=== PATIENT | female | born 1945 | race Caucasian/White ===

== ENCOUNTER 2021-02-27 10:00 | Inpatient (IN) | payer OTHER, SELFPAY ==
--- NOTE | ~2021-02-27 | XR_ITS ---
EXAMINATION: XR hip RT min 3V w AP pelvis DATE: 02/27/2021 10:26 INDICATION: Right hip pain and deformity post fall TECHNIQUE: Anteroposterior view of the pelvis and anteroposterior, frog leg and cross-table lateral v iews of the right hip were obtained. COMPARISON: None. FINDINGS: Oblique intratrochanteric fracture of the proximal right femur. Fractures minimally displaced with ap proximately 10 degree varus and posterior angulation. The fracture appears mildly comminuted with sep aration of the lesser trochanter which is distracted 1 cm proximally. 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 Moderate to severe lumbar facet osteoarthritis. IMPRESSION: 1. Mildly comminuted intratrochanteric fracture of the proximal right femur. Reviewed, dictated and finalized at location A.
--- NOTE | ~2021-02-27 | XR_ITS ---
EXAMINATION: XR surgery orthopedic DATE: 02/28/2021 11:57 INDICATION: Right hip gamma nailing TECHNIQUE: 6 fluoroscopic spot images of the right hip were obtained during procedure performed by Dr Joni Varghese. Radiologist was not present for the imaging or procedure. The amount of fluoroscopy time u sed during this procedure was 5.7 minutes. COMPARISON: 02/27/2021 FINDINGS: Images demonstrate interval open reduction and internal fixation of the previous noted comminuted int ratrochanteric fracture of the proximal right femur. The fracture is fixed with an antegrade intramed ullary beth and femoral neck dynamic compression screw and distal interlocking screw. Alignment post f ixation is near-anatomic. No new fractures identified. Mild osteoarthritis at the right hip. Expected small amount of postoperative soft tissue gas. IMPRESSION: 1. Near-anatomic alignment post open reduction internal fixation of a comminuted intratrochanteric fr acture of the proximal right femur. Reviewed, dictated and finalized at location A. IMPRESSION: 1. Near-anatomic alignment post open reduction internal fixation of a comminute d intratrochanteric fracture of the proximal right femur.
[2021-02-27 10:00] VITALS: BP 180/82; PULSE 68; TEMP 36.9; O2SAT 99
--- NOTE | 2021-02-27 10:58 | ECG_ITS ---
Measurements Intervals [place] Rate: 64 P: 32 NH: 199 QRS: -18 QRSD: 98 T: -37 QT: 399 QTc: 413 Interpretive Statements SINUS RHYTHM LEFT VENTRICULAR HYPERTROPHY AND ST-T CHANGE BORDERLINE T WAVE ABNORMALITY- INF/LAT LEADS BASELINE WANDER- I, II, III, AVR, AVL, AVF BORDERLINE ECG Electronically Signed On 02-27-2021 11:54:05 CDT by Mic Skinner D.O.
[2021-02-27 11:22] LABS: Basophils Percent Auto 0.5 % (0.2-1.2); Eosinophils Absolute Auto 0.1 K/mm3 (0-0.3); Eosinophils Percent Auto 0.8 % (0-4.4); Hematocrit 38.4 % (37.0-47.0); Hemoglobin 12.5 g/dL (12.0-15.0); Immature Granulocyte Absolute 0.04 K/mm3 (0.00-0.031); Immature Granulocyte Percent A 0.5 % (0-0.5); Lymphocytes Absolute Auto 1.03 K/mm3 (0.9-3.2); Lymphocytes Percent Auto 12.2 % (18.3-44.2); Mean Corpuscular HGB Conc 32.6 g/dl (32-36); Mean Corpuscular Hemoglobin 28.3 pg (26-34); Mean Corpuscular Volume 86.9 fl (80-100); Mean Platelet Volume 9.7 fl (7.4-10.4); Monocytes Absolute Auto 0.4 K/mm3 (0.1-0.6); Monocytes Percent Auto 4.8 % (2.6-8.5); Neutrophils Absolute Auto 6.9 K/mm3 (1.3-6.7); Neutrophils Percent Auto 81.2 % (45.5-73.1); Platelet Count Result 248 k/mm3 (150-375); Red Blood Count 4.42 M/mm3 (4.2-5.4); Red Cell Distribution Width 13.7 % (11.5-14.5); White Blood Count 8.5 K/mm3 (4.5-10.0)
[2021-02-27 11:32] LABS: Alanine Aminotransferase 24 U/L (4-35); Albumin Level 4.3 g/dL (3.5-5.1); Alkaline Phosphatase 125 U/L (38-126); Anion Gap 9 mmol/L (8-16); Aspartate Amino Transferase 55 U/L (14-36); Bilirubin,Total 0.8 mg/dL (0.2-1.3); Blood Urea Nitrogen 19 mg/dL (7-17); Carbon Dioxide 26 mmol/L (22-30); Chloride 104 mmol/L (98-107); Estimated CRCL calculation 65 ml/min; Estimated Glomerular Filt Rate > 60; Glucose 133 mg/dL (65-110); Sodium 139 mmol/L (137-145)
[2021-02-27 11:35] LABS: INR 0.9; Prothrombin Time 12.5 Seconds (11.1-14.7)
[2021-02-27 11:36] LABS: Partial Thromboplastin Time 24.4 SECONDS (22.3-36.8)
--- NOTE | 2021-02-27 11:49 | ED.GENADULT ---
HPI - General Adult General Chief complaint: Fall <Allan Hayden PA-C - Last Filed: 02/27/21 14:38> Stated complaint: right hip pain <Allan Hayden PA-C - Last Filed: 02/27/21 14:38> Source: patient <Allan Hayden PA-C - Last Filed: 02/27/21 14:38> Mode of arrival: ambulatory <Allan Hayden PA-C - Last Filed: 02/27/21 14:38> Limitations: no limitations <Allan Hayden PA-C - Last Filed: 02/27/21 14:38> History of Present Illness HPI narrative: Patient is a 76-year-old female presented with chief complaint of right hip pain is started just prior to arrival after she fell onto her right hip. Patient reports that she was attempting to move her bed when she fell onto the lateral aspect of her right hip. She reports great pain with weight-bear so she contacted her son-in-law EMS was called. Patient is very upset about her injury as her 's is on Wednesday. Patient denies any other areas of pain. Patient denies head impact or loss of consciousness. Patient reports that her pedis specialist is Dr Bruno. <Allan Hayden PA-C - Last Filed: 02/27/21 14:38> Related Data Home medications: Home Medications Medication Instructions Recorded Confirmed atorvastatin 40 mg PO DAILY 02/17/21 02/17/21 buspirone 10 mg PO DAILY 02/17/21 02/17/21 escitalopram oxalate 20 mg PO DAILY 02/17/21 02/17/21 febuxostat 40 mg PO DAILY 02/17/21 02/17/21 omeprazole 20 mg PO DAILY 02/17/21 02/17/21 <ELISA Villegas Last Filed: 02/27/21 14:38> Allergies/adverse reactions: Allergies Allergy/AdvReac Type Severity Reaction Status Date / Time allopurinol Allergy Other Verified 02/17/21 14:13 venom-wasp Allergy Swelling Verified 02/17/21 14:13 of Lip/Tongue/Throat IVP DYE Allergy Mild Swelling Uncoded 02/17/21 14:13 of Lip/Tongue/Throat <Allan Hayden PA-C - Last Filed: 02/27/21 14:38> Review of Systems Review of Systems: CONSTITUTIONAL: Denies fever, chills, or sweats. EYES: Denies visual changes, redness, or discharge. ENT: Denies rhinorrhea, congestion, sore throat, or otalgia. CARDIOVASCULAR: Denies chest pain, palpitations, or edema. RESPIRATORY: Denies cough or dyspnea. GASTROINTESTINAL: Denies abdominal pain, nausea, vomiting, or diarrhea. GENITOURINARY: Denies dysuria or hematuria. SKIN: Denies rash or itching. MUSCULOSKELETAL: Reports right hip pain denies back pain, joint pain, or myalgia. NEUROLOGIC: Denies headache, numbness, dizziness, or weakness. PSYCHIATRIC: Denies anxiety or depression. <Allan Hayden PA-C - Last Filed: 02/27/21 14:38> PMFSH Past Medical History Medical History: Medical History Anxiety and depression GERD (gastroesophageal reflux disease) Gout History of high cholesterol <Allan Hayden PA-C - Last Filed: 02/27/21 14:38> Surgical History Surgical History: Surgical History History of hysterectomy <Allan Hayden PA-C - Last Filed: 02/27/21 14:38> Social History Social History: Social History Smoking status: Former smoker Tobacco type: cigarettes Substance use: never Substance use type: does not use Spiritual care concerns: No <Allan Hayden PA-C - Last Filed: 02/27/21 14:38> Exam Narrative: GENERAL: Well-appearing, well-nourished, and in no acute distress. HEAD: Normocephalic, atraumatic. EYES: PERRLA and EOMI. ENT: Nares clear, no rhinorrhea or epistaxis. Mucous membranes moist. Oropharynx without tonsillar hypertrophy exudate or other lesions. Bilateral TMs pearly silva nonbulging. No hemotympanum. NECK: Supple. No adenopathy or masses. ROM intact. No tenderness with palpation. CHEST: Clear to auscultation. No respiratory distress. No wheezes rales or rhonchi HEART: Regular rate and rhythm. No murmur hear
--- NOTE | 2021-02-27 12:33 | PC.NURSE ---
Pt asked for pain medication, informed PA, patient took off monitoring will replace, pt and daughter would like to speak to ortho PA aware and will update patient and daughter of plan
[2021-02-27] MEDS: HYDROmorphone HCL INJ (*CRX) 1 MG/ML SYR IV PUSH (13:03)
--- NOTE | 2021-02-27 14:07 | PCCCNOTE ---
Phone call received from Dr. Nelda Pascal, requesting help with communication. States that patient's and the is one Wednesday and family and daughter Lucy are going through a tragic loss and very overhwhelmed. The covering orthopedic will see her on the floor but due to visitor restrictions the daughter will not be able to meet with the orthopedic. Dr. Pascal requesting that communication to orthopedic to see if they can meet with daughter Lucy in the ED face to face and also to ask about visitor policy since it will be changing on Wednesday. Phone number for sandrine Ayala is [phone]. Spoke with JEFF Hayden- ED provider who states that Dr. Varghese is consuliting ortho and healthcare administrator can call him to see if he will meet with dtr Lucy face to face. Phone call to Dr. Varghese's cell number as his preference, he states that he is in clinic but could try to come in between patients to meet with daughter if ED could hold. Per charge loader, awaiting call back from maintenance supervisor for a bed. Called back to Dr. Varghese's office spoke with Sharyn, she states that Dr. Varghese had left to see patient's family.
--- NOTE | 2021-02-27 14:08 | WPDANESEPP ---
Anes - Eval Pre Procedure Procedure: Operation Date: 02/28/21 10:00 Proposed Procedures p Right Hip Gamma Nail - Jose L Varghese MD Date/Time: 02/27/21 14:08 Surgeon: Cj Preop Diagnosis: Mildly comminuted intratrochanteric fracture of the proximal right femur. Pre Op Diagnosis: right hip pain Patient Data Age: 76 Gender: F Height: 1.6 m Weight: 68.04 kg Last Vital Signs Temp 98.4 F 02/27/21 10:00 Pulse 68 02/27/21 10:00 BP 180/82 H 02/27/21 10:00 Pulse Ox 99 02/27/21 10:00 Allergies Allergy/AdvReac Type Severity Reaction Status Date / Time allopurinol Allergy Other Verified 02/17/21 14:13 venom-wasp Allergy Swelling Verified 02/17/21 14:13 of Lip/Tongue/Throat IVP DYE Allergy Mild Swelling Uncoded 02/17/21 14:13 of Lip/Tongue/Throat Home Medications Medication Instructions Recorded Confirmed Type atorvastatin 40 mg PO DAILY 02/17/21 02/17/21 History buspirone 10 mg PO DAILY 02/17/21 02/17/21 History escitalopram oxalate 20 mg PO DAILY 02/17/21 02/17/21 History febuxostat 40 mg PO DAILY 02/17/21 02/17/21 History omeprazole 20 mg PO DAILY 02/17/21 02/17/21 History Laboratory Tests 02/27/21 02/27/21 02/27/21 11:12 11:12 11:12 WBC 8.5 K/mm3 K/mm3 (4.5-10.0) RBC 4.42 M/mm3 M/mm3 (4.2-5.4) Hgb 12.5 g/dL g/dL (12.0-15.0) Hct 38.4 % % (37.0-47.0) MCV 86.9 fl fl (80-100) MCH 28.3 pg pg (26-34) MCHC 32.6 g/dl g/dl (32-36) RDW 13.7 % % (11.5-14.5) Plt Count 248 k/mm3 k/mm3 (150-375) MPV 9.7 fl fl (7.4-10.4) Immature Gran % (Auto) 0.5 % % (0-0.5) Neut % (Auto) 81.2 % H % (45.5-73.1) Lymph % (Auto) 12.2 % L % (18.3-44.2) Emmet % (Auto) 4.8 % % (2.6-8.5) Eos % (Auto) 0.8 % % (0-4.4) Baso % (Auto) 0.5 % % (0.2-1.2) Lymph # (Auto) 1.03 K/mm3 K/mm3 (0.9-3.2) Emmet # (Auto) 0.4 K/mm3 K/mm3 (0.1-0.6) Eos # (Auto) 0.1 K/mm3 K/mm3 (0-0.3) Baso # (Auto) 0.0 K/mm3 K/mm3 (0.0-0.1) Abs Immat Gran (auto) 0.04 K/mm3 H K/mm3 (0.00-0.031) Absolute Neuts (auto) 6.9 K/mm3 H K/mm3 (1.3-6.7) Absolute Nucleated RBC 0.0 K/mm3 K/mm3 (0.0-0.012) Nucleated RBC % 0.0 % % (0.0-0.2) PT 12.5 Seconds Seconds (11.1-14.7) INR 0.9 APTT 24.4 SECONDS SECONDS (22.3-36.8) Sodium 139 mmol/L mmol/L (137-145) Potassium 4.0 mmol/L mmol/L (3.4-5.0) Chloride 104 mmol/L mmol/L (98-107) Carbon Dioxide 26 mmol/L mmol/L (22-30) Anion Gap 9 mmol/L mmol/L (8-16) BUN 19 mg/dL H mg/dL (7-17) Creatinine 0.50 mg/dL L mg/dL (0.7-1.0) Estim Creat Clear Calc 65 ml/min ml/min Estimated GFR > 60 (59 - ) Glucose 133 mg/dL H mg/dL (65-110) Calcium 9.0 mg/dL mg/dL (8.4-10.2) Total Bilirubin 0.8 mg/dL mg/dL (0.2-1.3) AST 55 U/L H U/L (14-36) ALT 24 U/L U/L (4-35) Alkaline Phosphatase 125 U/L U/L (38-126) Total Protein 7.0 g/dL g/dL (6.3-8.2) Albumin 4.3 g/dL g/dL (3.5-5.1) Patient hx anesthesia problems: none Family hx anesthesia problems: none Results Review: All pre-operative results and documents have been reviewed as part of the pre-operative evaluation. [facility] Past Medical History Medical History Anxiety and depression GERD (gastroesophageal reflux disease) Gout History of high cholesterol Surgical History Surgical History History of hysterectomy Social History Social History Smoking status: Former smoker Tobacco type: cigarettes S
[2021-02-27] MEDS: HYDROmorphone HCL INJ (*CRX) 1 MG/ML SYR 0.5 MG IV PUSH ×2 (15:20→20:17)
[2021-02-27 17:03] VITALS: BP 140/68; RESP 16; O2SAT 100
--- NOTE | 2021-02-27 17:20 | ADMGEN ---
This patient, Heydi Velasquez, was admitted to Medical Room 253-01. Patient/family oriented to hospital policies and general routines including ID bracelet, bed and alarms, visiting hours, pain management, procedures, bathroom and other care routines, personal items, smoking policy, room service/diet, and visiting hours. Information on how to activate the Rapid Response Team has been discussed. Patient/Family are encouraged to report perceived risks to care and to ask questions if they do not understand what they are told or what they should do.
[2021-02-27 18:00] VITALS: BP 174/64; PULSE 70; RESP 20; TEMP 36.7; O2SAT 97
[2021-02-27] MEDS: guaiFENesin/DEXTROMETHORPHAN 10 ML UDC PO (20:17)
[2021-02-27 20:18] VITALS: BP 152/68; PULSE 72; RESP 18; TEMP 37.1; O2SAT 96
--- NOTE | 2021-02-27 23:04 | PM.IMHP ---
H&P: HPI History of Present Illness Date/Time: 02/27/21 23:04 Date/Time: 02/27/21 16:42 this is a 76 year old female patient who presented to the emergency room with complaint of right hip pain. The pain started prior to arrival to the emergency room. The patient was attempting to move her bed when she fell onto her right side. The patient was not able to bear weight on that right hip. The patient stated that she had no complaints of chest pain or any dizziness prior to this incident. The patient stated that she did not lose consciousness. The patient stated that she has been emotionally distraught as her recently and she has been making arrangements for her for the Wednesday. The daughter is at the bedside. Lucy silva is her power associate attorney that is at the bedside. Comminuted intertrochanteric fracture the proximal right femur. Glucose is 133. Dr. Varghese had been consulted and has already seen the patient. The patient is scheduled to have surgery tomorrow morning. The patient is being admitted as observation status on the date of service of 02/27/2021. Chief Complaint: Right hip pain after fall Review of Systems Review of Systems: All systems reviewed & are unremarkable except as noted in HPI and below Constitutional: Constitutional: Reports as per HPI and Reports no additional constitutional complaints Eyes: Eyes: Reports as per HPI and Reports no additional eye complaints ENT: Reports system reviewed and no additional complaints, except as documented and Reports Normal hearing present Cardiovascular: Cardiovascular: Reports no additional cardiovascular complaints Respiratory: Respiratory: Reports no additional respiratory complaints and Reports no additional respiratory complaints Gastrointestinal: Gastrointestinal: Reports as per HPI and Reports no additional gastrointestinal complaints Musculoskeletal: Musculoskeletal: Reports no additional musculoskeletal complaints Integumentary/Breasts: Skin/Breast: Reports system reviewed and no additional complaints, except as docu and Reports as per HPI Neurologic: Reports system reviewed and no additional complaints, except as documented, Reports as per HPI and Reports Normal hearing present Psychiatric: Psychiatric: Reports no additional psychiatric complaints and Reports as per HPI Endocrine: Endocrine: Reports no additional endocrine complaints Hematologic/Lymphatic: Hematologic/Lymphatic: Reports no additional hematologic/lymphatic complaints Allergic/Immunologic: Allergic/Immunologic: Reports no additional allergic/immunologic complaints PMFSH Past Medical History Medical History Anxiety and depression GERD (gastroesophageal reflux disease) Gout History of high cholesterol Hyperlipidemia Surgical History Surgical History H/O bladder repair surgery Bladder stimulator which was subsequently removed. H/O oophorectomy H/O toe surgery History of appendectomy History of hysterectomy History of surgery on extremity Right lower extremity and right arm Hx of cataract extraction Hx of cholecystectomy Family History Family History Father Congestive heart failure Sibling Diabetes mellitus Kidney failure Carcinoma of colon Seizure Mother Cancer Social History Social History Social History: The patient is . Her recently passed. Her daughter Lucy silva is a durable power associate attorney for healthcare. 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 Patient is an ex-smoker. She does not use any marijuana drug for alcohol. Code status full code Smoking packs per day: 0.2 Smoking cigarettes per day: 4.0 Years smoked: 10 Smoking pack-years: 2.00 Smoking status: Former smoke
[2021-02-28] VITALS (17 sets, daily range): BP systolic 121–173; BP diastolic 44–83; PULSE 64–88; RESP 11–21; TEMP 36.4–37.3; O2SAT 91–100
[2021-02-28] MEDS: SODIUM CHLORIDE 0.9% IV 1,000 ML 100 ML IV CONT (01:34)
[2021-02-28] MEDS: HYDROmorphone HCL INJ (*CRX) 1 MG/ML SYR 0.5 MG IV PUSH (04:20)
[2021-02-28 05:44] LABS: Basophils Percent Auto 0.3 % (0.2-1.2); Eosinophils Percent Auto 0.3 % (0-4.4); Hematocrit 34.8 % (37.0-47.0); Hemoglobin 11.4 g/dL (12.0-15.0); Immature Granulocyte Absolute 0.03 K/mm3 (0.00-0.031); Immature Granulocyte Percent A 0.3 % (0-0.5); Lymphocytes Absolute Auto 1.54 K/mm3 (0.9-3.2); Lymphocytes Percent Auto 16.1 % (18.3-44.2); Mean Corpuscular HGB Conc 32.8 g/dl (32-36); Mean Corpuscular Hemoglobin 28.4 pg (26-34); Mean Corpuscular Volume 86.6 fl (80-100); Mean Platelet Volume 9.8 fl (7.4-10.4); Monocytes Absolute Auto 0.9 K/mm3 (0.1-0.6); Monocytes Percent Auto 9.4 % (2.6-8.5); Neutrophils Absolute Auto 7.1 K/mm3 (1.3-6.7); Neutrophils Percent Auto 73.6 % (45.5-73.1); Platelet Count Result 232 k/mm3 (150-375); Red Blood Count 4.02 M/mm3 (4.2-5.4); Red Cell Distribution Width 13.8 % (11.5-14.5); White Blood Count 9.6 K/mm3 (4.5-10.0)
[2021-02-28 05:49] LABS: Alanine Aminotransferase 42 U/L (4-35); Albumin Level 3.9 g/dL (3.5-5.1); Alkaline Phosphatase 136 U/L (38-126); Anion Gap 9 mmol/L (8-16); Aspartate Amino Transferase 60 U/L (14-36); Bilirubin,Total 1.3 mg/dL (0.2-1.3); Blood Urea Nitrogen 19 mg/dL (7-17); Calcium 8.6 mg/dL (8.4-10.2); Carbon Dioxide 27 mmol/L (22-30); Chloride 100 mmol/L (98-107); Estimated CRCL calculation 55 ml/min; Estimated Glomerular Filt Rate > 60; Glucose 124 mg/dL (65-110); Magnesium 1.8 mg/dL (1.6-2.3); Potassium 3.7 mmol/L (3.4-5.0); Sodium 136 mmol/L (137-145)
--- NOTE | 2021-02-28 08:54 | PC.NURSE ---
To OR per bed, IV saline locked. Report given to FIORELLA Mcgregor.
--- NOTE | 2021-02-28 09:12 | WPDANESEFPP ---
Anes - Eval Final PreProcedure Day of Procedure 02/28/21 09:12 Patient weight: overweight Heart: regular rate and rhythm Lungs: clear to auscultation Airway: Mallampati scale class II Neurological: alert and oriented Last oral intake: >/= 8 hours ASA classification: III Emergent: no Anesthetic plan: proceed Anesthesia type and monitoring: general LMA and standard monitoring Results Review: All pre-operative results and documents have been reviewed as part of the pre-operative evaluation. Informed Consent: The patient's anesthetic plan and its attendant risks and benefits were discussed with the patient/family/POA. Questions were solicited and answers provided to the satisfaction of the patient/family/POA.
[2021-02-28] MEDS: LACTATED RINGERS 1,000 ML 30 ML IV CONT (09:25)
--- NOTE | 2021-02-28 09:28 | PM.CNOR ---
Assessment and Plan Assessment and plan (1) Closed right hip fracture: Qualifiers: Encounter type: initial encounter Qualified Code(s): S72.001A - Fracture of unspecified part of neck of right femur, initial encounter for closed fracture Code(s): S72.001A - Fracture of unspecified part of neck of right femur, initial encounter for closed fracture Status: Acute Assessment and Plan: Radiographs of the right hip reveal a comminuted intratrochanteric fracture of the proximal right femur. The fracture type and injury as well as radiographs discussed with the patient and family. Operative and nonoperative treatment options reviewed. The patient elects for operative treatment. Discussed insertion of gamma nail RIGHT hip Risks of surgery including but not limited to neurovascular damage, wound complications, blood clot, pulmonary embolus, stroke, myocardial infarction, anesthetic risks up to and including were reviewed. Continued pain and possible dysfunction were explained. No guarantees were offered. The patient understands and wishes to proceed. Plan: Insertion of Gamma Nail Right Hip by Dr. Abimael CHONGO in the interim. NWB RLE. FALL RISK. Pain control. Ice. History of Present Illness HPI Consult date: 02/28/21 Requesting physician: Linda Bassett SERVICE STATION HELPER Consult reason: fracture Chief complaint: Right Hip Fracture Narrative: 76-year-old female admitted status post fall while at home. Patient reports that she was trying to move her bed over and she lost her balance and fell onto the right side. She had extreme pain and was unable to bear weight on the right lower extremity. She was transferred to the hospital for further evaluation. The patient denies any evidence of a syncopal event prior to fall. Radiographs of the right hip reveal comminuted intratrochanteric fracture of the proximal right femur. Patient denies any other joint pain. Orthopedic surgery consulted. Review of Systems Constitutional: Constitutional: Denies chills, Reports fatigue and Denies night sweats Cardiovascular: Cardiovascular: Denies chest pain and Denies lightheadedness Respiratory: Respiratory: Denies cough and Denies wheezing Gastrointestinal: Gastrointestinal: Denies abdominal pain, Denies diarrhea, Denies nausea and Denies vomiting Genitourinary: Genitourinary: Reports urinary frequency, Denies dysuria and Denies urinary hesitancy Musculoskeletal: Musculoskeletal: Reports arthralgias (right hip ) and Reports joint swelling (right hip ) Endocrine: Endocrine: Reports fatigue Allergic/Immunologic: Allergic/Immunologic: Denies wheezing PMFSH Past Medical History Medical History (Updated 02/28/21 @ 09:40 by REYNA Guzman) Anxiety and depression Closed right hip fracture GERD (gastroesophageal reflux disease) Gout History of high cholesterol Hyperlipidemia Surgical History Surgical History H/O bladder repair surgery Bladder stimulator which was subsequently removed. H/O oophorectomy H/O toe surgery History of appendectomy History of hysterectomy History of surgery on extremity Right lower extremity and right arm Hx of cataract extraction Hx of cholecystectomy Family History Family History Father Congestive heart failure Sibling Diabetes mellitus Kidney failure Carcinoma of colon Seizure Mother Cancer Social History Social History (Updated 02/28/21 @ 09:37 by REYNA Guzman) Social History: The patient is . Her recently passed. Her daughter Lucy silva is a durable power sports attorney for healthcare. 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 Patient is an ex-smoker. She does not use any marijuana, drugs or alcohol. Code status full code Smoking packs per day: 0.2 Smoking cigarettes per day: 4.0 Years smoked: 10 Smoking pac
[2021-02-28] MEDS: TRANEXAMIC ACID 1,000MG/ISO100 1,000 MG/100 ML BAG 200 MG IVPB (09:51)
--- NOTE | 2021-02-28 09:58 | WPDHPUPDATE1 ---
History and Physical Update Update Date/Time: 02/28/21 09:58 History and Physical has been reviewed, including an updated exam of the patient. There are NO changes in the patient's condition. Risks, benefits, and alternatives have been discussed and questions answered. Patient agrees to proceed with procedure.
[2021-02-28] MEDS: ceFAZolin 2 GM/D5W 50 ML 2 GM/50 ML BAG IVPB ×2 (10:30→17:36)
--- NOTE | 2021-02-28 12:16 | SUR.OPER ---
patient arrived to OR with catheter in place - emptied at end of case - 275 ml out
[2021-02-28 12:18] LABS: Glucose Point of Care 169 mg/dl (65-105)
--- NOTE | 2021-02-28 12:23 | W.PM.PROC2 ---
Procedure Note - Detailed Date of Procedure 02/28/21 Pre-op Diagnosis Right Hip Fracture Post-op Diagnosis same Procedure Performed INSERTION GAMMA MYNOR RIGHT HIP Surgeon Jose L Varghese MD Anesthesia general Description of Procedure THE PATIENT WAS TAKEN TO THE OPERATING ROOM AND PLACED ON A FRACTURE TABLE AFTER GIVEN GENERAL ANESTHESIA. THE RIGHT LOWER EXTREMITY WAS PLACED IN A TRACTION BOOT AND USING SOME TRACTION AND INTERNAL ROTATION THE INNER TROCHANTERIC FRACTURE WAS REDUCED TO ANATOMIC POSITION. NEXT THE RIGHT LOWER EXTREMITY WAS PREPPED AND DRAPED IN THE STERILE FASHION. AN INCISION WAS MADE PROXIMAL TO THE TIP OF THE GREATER TROCHANTER AND DISSECTION CONTINUED TILL THE TIP OF THE GREATER TROCHANTER WAS PALPATED. A GUIDE PIN WAS PLACED DOWN THE FEMORAL CANAL AND PAST THE FRACTURE SITE. THIS WAS CHECKED ON FLUOROSCOPY AND FOUND TO BE IN GOOD POSITION. AN INITIAL REAMER WAS USED TO REAM THE FEMORAL CANAL. A 11 BY 180 MM GAMMA MYNOR WAS INSERTED TILL THE CORRECT POSITION WAS IDENTIFIED ON XRAY. A GUIDE PIN WAS INSERTED THROUGH THE FEMORAL NECK AT 130 DEG ANGLE TILL IT REACHED THE TIP OF THE SUB CHONDRAL BONE SEEN ON XRAY. AFTER REAMING, LAG SCREW WAS INSERTED MEASURING 95 MM. XRAYS SHOWED IT TO BE IN GOOD POSITION. THE LAG SCREW WAS LOCKED PROXIMALLY WITH A LOCKING SCREW. NEXT A DISTAL LOCKING SCREW WAS PLACED ACROSS THE MYNOR AND WAS IN GOOD POSITION ON XRAY. THE TRACTION WAS RELEASED. THE WOUNDS WERE WASHED. THE DEEP FASCIA WAS REPAIRED WITH 0 VICRYL SUTURE, THE SUB CUTANEOUS LAYER WITH 2-0 VICRYL, AND THE SKIN WITH GA. THE WOUNDS WERE WASHED AND THEN STERILE DRESSING WAS APPLIED. PATIENT WAS EXTUBATED AND SENT TO RECOVERY ROOM. Estimated Blood Loss 100 Complications No immediate complications Condition stable Disposition PACU
[2021-02-28] MEDS: fentaNYL CITRATE INJ (*CRX) 100 MCG/2 ML VIAL 25 MCG IV PUSH ×5 (12:29→13:11)
[2021-02-28] MEDS: ESCITALOPRAM OXALATE 10 MG TABLET 20 MG PO (13:49)
[2021-02-28] MEDS: busPIRone HCL 10 MG TABLET PO (13:49)
[2021-02-28] MEDS: PANTOPRAZOLE 40 MG TABLET PO (13:49)
[2021-02-28] MEDS: FEBUXOSTAT 40 MG TABLET PO (13:49)
[2021-02-28] MEDS: ATORVASTATIN 40 MG TABLET PO (13:50)
--- NOTE | 2021-02-28 14:43 | PM.IMPN ---
Progress Note: A&P Assessment and Plan (1) Closed fracture of right hip: Qualifiers: Encounter type: initial encounter Qualified Code(s): S72.001A - Fracture of unspecified part of neck of right femur, initial encounter for closed fracture Code(s): S72.001A - Fracture of unspecified part of neck of right femur, initial encounter for closed fracture Status: Acute Assessment and Plan: Secondary to mechanical fall with which she landed on her right hip. Did not hit her head. No precipitating symptoms. She is s/p insertion of gamma beth of the right hip performed by Dr. Varghese today She tolerated the procedure well and her pain is well controlled Management per Orthopedic surgery including incision care and DVT prophylaxis Supportive care. analgesics available as needed for pain PT/OT evals appreciated (2) Diabetes mellitus: Code(s): E11.9 - Type 2 diabetes mellitus without complications Status: Acute Assessment and Plan: reports last A1c was around 6 initiate Accu-Cheks, sliding scale insulin, and hypoglycemic protocol check updated A1c she is not on any hypoglycemic medications and appears to be diet controlled. (3) Anxiety and depression: Code(s): F41.9 - Anxiety disorder, unspecified; F32.A - Depression, unspecified Status: Chronic Assessment and Plan: Mood is stable at this time. She is going through a difficult time given the very recent loss of her . Continue escitalopram and buspirone (4) GERD (gastroesophageal reflux disease): Code(s): K21.9 - Gastro-esophageal reflux disease without esophagitis Status: Chronic Assessment and Plan: no acute issues Protonix 40 mg p.o. daily (5) Gout: Code(s): M10.9 - Gout, unspecified Status: Chronic Assessment and Plan: no acute issues. Continue febuxostat Subjective Date/time seen: 02/28/21 14:43 Interval history: Date of service: 02/28/2021 Heydi Velasquez is a 76-year-old female with a history of hyperlipidemia, GERD, anxiety, and depression who is seen in follow-up for right hip fracture secondary to mechanical fal. she is now s/p surgical repair. She tolerated the procedure well. She rates her right hip pain is 5/10 at rest. She states that if she moves it shoots up to 10/10 and earlier she coughed and this again causes sharp increase in hip pain. Otherwise, she has no additional complaints. No nausea or vomiting. No fevers or chills. No shortness of breath, cough, or chest pain. No issues with her Hopkins catheter. Her last bowel movement was 2 days ago. She denies dizziness or lightheadedness. She has no additional concerns at this time. She is having a difficult time as her 's was supposed to be tomorrow, however this had to be rescheduled due to her hospitalization. She has support of family to help her through this very difficult time. Review of Systems Review of Systems: All systems reviewed & are unremarkable except as noted in HPI and below Exam Narrative: Ms. Velasquez is a well-nourished, well-appearing 76-year-old female who is lying supine in bed. She appears comfortable and is in NARD. Neuro: awake, alert and oriented x4, speech clear, no focal neuro deficits noted HEENMT: normocephalic, atraumatic, EOMI, sclerae anicteric, moist oral mucosa Neck: supple, no lymphadenopathy Respiratory: clear to auscultation bilaterally, nonlabored breathing Cardio: regular rate, regular rhythm with S1-S2 Abdomen: nondistended, normoactive bowel sounds, soft, nontender to palpation : Hopkins catheter patent draining straw-colored urine Extremities: right hip covered in bandage that is clean and dry, ice pack overlying right hip and thigh. Bilateral lower extremities without edema, erythema, or tenderness to palpation. DP pulses 2+ bilaterally Skin: no rashes or lesions, warm and
[2021-02-28] MEDS: HYDROcodone/acetaminophen (*CRX) 7.5-325 MG TABLET 1 TAB PO ×2 (14:52→20:05)
[2021-02-28] MEDS: DOCUSATE SODIUM 100 MG CAPSULE PO (16:09)
[2021-02-28] MEDS: MORPHINE SULFATE (*CRX) 4 MG/ML INJ 3 MG IV PUSH (17:38)
[2021-02-28 18:05] LABS: Glucose Point of Care 157 mg/dl (65-105)
[2021-02-28 21:10] LABS: Glucose Point of Care 156 mg/dl (65-105)
[2021-03-01] VITALS (7 sets, daily range): BP systolic 113–131; BP diastolic 44–56; PULSE 66–76; RESP 16–20; TEMP 36.3–37.4; O2SAT 92–98
[2021-03-01] MEDS: diazePAM (*CRX) 5 MG TABLET PO (00:58)
[2021-03-01] MEDS: ceFAZolin 2 GM/D5W 50 ML 2 GM/50 ML BAG IVPB ×2 (02:24→09:40)
[2021-03-01 05:48] LABS: Basophils Percent Auto 0.2 % (0.2-1.2); Eosinophils Percent Auto 0.4 % (0-4.4); Hematocrit 35.1 % (37.0-47.0); Hemoglobin 10.8 g/dL (12.0-15.0); Immature Granulocyte Absolute 0.05 K/mm3 (0.00-0.031); Immature Granulocyte Percent A 0.5 % (0-0.5); Lymphocytes Absolute Auto 1.36 K/mm3 (0.9-3.2); Lymphocytes Percent Auto 12.8 % (18.3-44.2); Mean Corpuscular HGB Conc 30.8 g/dl (32-36); Mean Corpuscular Hemoglobin 27.9 pg (26-34); Mean Corpuscular Volume 90.7 fl (80-100); Mean Platelet Volume 10.1 fl (7.4-10.4); Monocytes Absolute Auto 1.3 K/mm3 (0.1-0.6); Monocytes Percent Auto 11.8 % (2.6-8.5); Neutrophils Absolute Auto 7.9 K/mm3 (1.3-6.7); Neutrophils Percent Auto 74.3 % (45.5-73.1); Platelet Count Result 219 k/mm3 (150-375); Red Blood Count 3.87 M/mm3 (4.2-5.4); White Blood Count 10.6 K/mm3 (4.5-10.0)
[2021-03-01 06:02] LABS: Anion Gap 5 mmol/L (8-16); Blood Urea Nitrogen 14 mg/dL (7-17); Calcium 8.6 mg/dL (8.4-10.2); Carbon Dioxide 31 mmol/L (22-30); Chloride 100 mmol/L (98-107); Estimated CRCL calculation 55 ml/min; Estimated Glomerular Filt Rate > 60; Glucose 139 mg/dL (65-110); Potassium 3.8 mmol/L (3.4-5.0); Sodium 136 mmol/L (137-145)
[2021-03-01] MEDS: HYDROcodone/acetaminophen (*CRX) 7.5-325 MG TABLET 1 TAB PO ×2 (06:35→18:12)
[2021-03-01 07:58] LABS: Glucose Point of Care 157 mg/dl (65-105)
[2021-03-01] MEDS: FEBUXOSTAT 40 MG TABLET PO (08:30)
[2021-03-01] MEDS: ASPIRIN 325 MG ENTERIC TABLET 650 MG PO (08:30)
[2021-03-01] MEDS: ATORVASTATIN 40 MG TABLET PO (08:30)
[2021-03-01] MEDS: ESCITALOPRAM OXALATE 10 MG TABLET 20 MG PO (08:30)
[2021-03-01] MEDS: PANTOPRAZOLE 40 MG TABLET PO (08:31)
[2021-03-01] MEDS: busPIRone HCL 10 MG TABLET PO (08:31)
[2021-03-01] MEDS: CELECOXIB 200 MG CAPSULE PO (08:31)
[2021-03-01] MEDS: DOCUSATE SODIUM 100 MG CAPSULE PO ×2 (08:31→16:32)
--- NOTE | 2021-03-01 09:09 | PM.PNORT ---
Progress Note: A&P Assessment and Plan (1) Closed right hip fracture: Qualifiers: Encounter type: subsequent encounter Fracture healing: with routine healing Qualified Code(s): S72.001D - Fracture of unspecified part of neck of right femur, subsequent encounter for closed fracture with routine healing Code(s): S72.001A - Fracture of unspecified part of neck of right femur, initial encounter for closed fracture Status: Acute Assessment and Plan: Postoperative day 1 right hip intramedullary hip screw. Up to chair. P.T./OT. Pain control. DVT prophylaxis. Home with home health when medically stable. Subjective Subjective Date/Time Seen: 03/01/21 09:09 Post Op day: 1 Principal diagnosis: Right hip fracture Interval history: Postoperative day 1 right hip intertrochanteric fracture. Patient up to chair. Complains of muscle soreness right leg. Minimal hip pain. Peripheral neuropathy at baseline. Exam Const: General: cooperative, comfortable and no acute distress Nutritional Appearance: average body habitus Orientation/consciousness: patient oriented x3 Limitations: no limitations HENMT: Head: normal to inspection, normocephalic and atraumatic Ears: hearing grossly normal bilaterally General nose exam: Normal nares present Face and sinus: normal facial exam and face symmetric Mouth: Yes moist mucous membranes Eyes: General: appearance normal, both eyes and all related structures Conjunctivae: conjunctivae normal Sclera: sclerae normal Pupils: Equal, round and reactive pupils present Neck: Neck: supple and no JVD Chest: Chest palpation & inspection: normal inspection of the chest Resp: Effort & Inspection: normal respiratory effort and able to speak in complete sentences Cardio: Jugular venous distension: no JVD Rate: regular rate Rhythm: regular rhythm GI: Inspection: non-distended GI Palp: Yes Soft to palpation and No Tenderness to palpation present (GI) Neuro: General: gait normal Cognition (Neuro): normal cognition Speech: normal speech Gait exam (Neuro): Unable to assess gait Extrem: Right lower extremity: hip/thigh Details: tenderness Location: of the hip Location: laterally, anteriorly, anteromedially, anterolaterally and over the greater trochanter, swelling Location: at the hip and ecchymosis (Lateral hip ); ROM normal, knee Details: normal to inspection; no tenderness, no swelling and ROM abnormal (ROM deferred due to right hip fracture ), lower leg Details: normal to inspection, ankle (+ankle dorsiflexion/plantarflexion. ) and foot (2+ pedal pulses. Moves toes. Sensation diminished secondary to neuropathy) Details: normal capillary refill and motor-sensory exam Details: light-touch abnormal Location: in all toes Left lower extremity: hip/thigh Details: normal to inspection and normal ROM; no tenderness and no swelling, knee Details: normal to inspection and normal ROM; no tenderness and no swelling, lower leg Details: normal to inspection, palpable cord and no edema; no localized swelling, no ecchymosis, no crepitus, no deformity and no unusual warmth, ankle Details: normal to inspection, no edema and normal ROM; no tenderness, no swelling and no pitting edema and foot Details: normal capillary refill, toes with normal ROM and vascular exam Details: dorsalis pedis pulse present; no tenderness Other: Right hip dressing clean dry and intact. Negative Homans sign. Psych: Mental Status: mental status grossly normal Affect: normal affect Objective Data Vital Signs Vital Signs: Vital Signs - 24 hr 02/28/21 09:25 02/28/21 12:10 02/28/21 12:25 Temperature 99.2 F 98.3 F Pulse Rate 64 88 82 Respiratory Rate 18 18 16 Blood Pressure 121/47 L 173/75 H 157/83 H Pulse Oximetry 95 100 98 02/28/21 12:40 02/28/21 12:54 02/28/21 13:05 Temperature Pulse Rate 85 79 78 Respiratory Rate 14 15 11 L Blood Pressure 146/79 H 158/67 H 159/69 H Pulse Oximetry 99 92 94 02/28/21 13:
--- NOTE | 2021-03-01 10:43 | PM.IMPN ---
Progress Note: A&P Assessment and Plan (1) Closed fracture of right hip: Qualifiers: Encounter type: initial encounter Qualified Code(s): S72.001A - Fracture of unspecified part of neck of right femur, initial encounter for closed fracture Code(s): S72.001A - Fracture of unspecified part of neck of right femur, initial encounter for closed fracture Status: Acute Assessment and Plan: Secondary to mechanical fall with which she landed on her right hip. Did not hit her head. No precipitating symptoms. She is POD #1 insertion of gamma beth of the right hip performed by Dr. Varghese Management per Orthopedic surgery including incision care and DVT prophylaxis Supportive care. Analgesics available as needed for pain PT/OT evals appreciated. Hopeful discharge tomorrow if continued improvement/progress with therapy. She plans to stay with her daughter on discharge. Reports only 2 steps to enter the home. (2) Diabetes mellitus: Code(s): E11.9 - Type 2 diabetes mellitus without complications Status: Acute Assessment and Plan: reports last A1c was around 6 Continue Accu-Cheks, sliding scale insulin, and hypoglycemic protocol A1c is pending she is not on any hypoglycemic medications and appears to be diet controlled. (3) Anxiety and depression: Code(s): F41.9 - Anxiety disorder, unspecified; F32.A - Depression, unspecified Status: Chronic Assessment and Plan: Mood is stable at this time. She is going through a difficult time given the very recent loss of her but has strong family support. Continue escitalopram and buspirone (4) GERD (gastroesophageal reflux disease): Code(s): K21.9 - Gastro-esophageal reflux disease without esophagitis Status: Chronic Assessment and Plan: no acute issues Protonix 40 mg p.o. daily (5) Gout: Code(s): M10.9 - Gout, unspecified Status: Chronic Assessment and Plan: no acute issues. Continue febuxostat Subjective Date/time seen: 03/01/21 10:43 Interval history: Date of service: 03/01/2021 Heydi Velasquez is a 76-year-old female with a history of hyperlipidemia, GERD, anxiety, and depression who is seen in follow-up for right hip fracture secondary to mechanical fall. She is POD#1. She is feeling very well today. She does not have any pain in the hip. She endorses some discomfort in lateral thigh region mostly with movement. She was able to get up from bed and sit in the chair today with the assistance of therapy and tolerated this well. She denies nausea, vomiting, dizziness, lightheadedness, shortness breath, cough, chest pain, or palpitations. Appetite has been good. Her Hopkins catheter was removed and she was able to urinate without difficulty. She is passing gas but has not had a bowel movement. She has no additional concerns at this time. She would like to return home with her daughter following her discharge. Review of Systems Review of Systems: All systems reviewed & are unremarkable except as noted in HPI and below Exam Narrative: Ms. Velasquez is a well-nourished, well-appearing 76-year-old female who is sitting in a chair by the bedside. She appears comfortable and is in NARD. Neuro: awake, alert and oriented x4, speech clear, no focal neuro deficits noted HEENMT: normocephalic, atraumatic, EOMI, sclerae anicteric, moist oral mucosa Neck: supple, no lymphadenopathy Respiratory: clear to auscultation bilaterally, nonlabored breathing Cardio: regular rate, regular rhythm with S1-S2 Abdomen: nondistended, normoactive bowel sounds, soft, nontender to palpation Extremities: right hip covered in bandage that is clean and dry, ice pack overlying right hip and thigh. Bilateral lower extremities without edema, erythema, or tenderness to palpation. Neurovascularly intact. Able to wiggle toes bilaterally. DP pulses 2+ bi
[2021-03-01 11:04] LABS: Hemoglobin A1C 6.4 % (<5.7)
[2021-03-01 12:05] LABS: Glucose Point of Care 181 mg/dl (65-105)
--- NOTE | 2021-03-01 15:05 | WPDANESPN ---
Anes - Prog Note Post-Op Date/Time: 03/01/21 15:05 Cardiovascular status: normal Respiratory status: normal Airway patency: baseline Mental status: baseline Post-Op hydration status: normal Vital Signs: Last Vital Signs Temp 36.7 C 03/01/21 11:25 Pulse 71 03/01/21 11:25 Resp 16 03/01/21 11:25 BP 116/52 L 03/01/21 11:25 Pulse Ox 97 03/01/21 13:45 Pain Score (VAS): 0 I/O: Intake & Output 02/28/21 03/01/21 03/01/21 23:59 07:59 15:59 Intake Total 600 550 530 Output Total 750 800 Balance -150 -250 530 Laboratory Tests 03/01/21 04:49 03/01/21 04:49 02/28/21 02/28/21 03/01/21 17:38 20:05 04:47 WBC RBC Hgb Hct MCV MCH MCHC RDW Plt Count MPV Immature Gran % (Auto) Neut % (Auto) Lymph % (Auto) [place] % (Auto) Eos % (Auto) Baso % (Auto) Lymph # (Auto) [place] # (Auto) Eos # (Auto) Baso # (Auto) Abs Immat Gran (auto) Absolute Neuts (auto) Absolute Nucleated RBC Nucleated RBC % Sodium Potassium Chloride Carbon Dioxide Anion Gap BUN Creatinine Estim Creat Clear Calc Estimated GFR Glucose POC Capillary Glucose 157 H 156 H Hemoglobin A1c 6.4 H Calcium 03/01/21 03/01/21 03/01/21 04:49 04:49 07:53 WBC 10.6 H RBC 3.87 L Hgb 10.8 L Hct 35.1 L MCV 90.7 MCH 27.9 MCHC 30.8 L RDW 14.0 Plt Count 219 MPV 10.1 Immature Gran % (Auto) 0.5 Neut % (Auto) 74.3 H Lymph % (Auto) 12.8 L [place] % (Auto) 11.8 H Eos % (Auto) 0.4 Baso % (Auto) 0.2 Lymph # (Auto) 1.36 [place] # (Auto) 1.3 H Eos # (Auto) 0.0 Baso # (Auto) 0.0 Abs Immat Gran (auto) 0.05 H Absolute Neuts (auto) 7.9 H Absolute Nucleated RBC 0.0 Nucleated RBC % 0.0 Sodium 136 L Potassium 3.8 Chloride 100 Carbon Dioxide 31 H Anion Gap 5 L BUN 14 D Creatinine 0.60 L Estim Creat Clear Calc 55 Estimated GFR > 60 Glucose 139 H POC Capillary Glucose 157 H Hemoglobin A1c Calcium 8.6 03/01/21 11:50 WBC RBC Hgb Hct MCV MCH MCHC RDW Plt Count MPV Immature Gran % (Auto) Neut % (Auto) Lymph % (Auto) [place] % (Auto) Eos % (Auto) Baso % (Auto) Lymph # (Auto) [place] # (Auto) Eos # (Auto) Baso # (Auto) Abs Immat Gran (auto) Absolute Neuts (auto) Absolute Nucleated RBC Nucleated RBC % Sodium Potassium Chloride Carbon Dioxide Anion Gap BUN Creatinine Estim Creat Clear Calc Estimated GFR Glucose POC Capillary Glucose 181 H Hemoglobin A1c Calcium Post-procedural complaints: none Patient Feedback: Patient satisfied with anesthetic care.
[2021-03-01 16:39] LABS: Glucose Point of Care 132 mg/dl (65-105)
[2021-03-01 21:53] LABS: Glucose Point of Care 193 mg/dl (65-105)
[2021-03-02] MEDS: HYDROcodone/acetaminophen (*CRX) 7.5-325 MG TABLET 1 TAB PO ×2 (01:11→07:26)
[2021-03-02 02:00] VITALS: BP 115/45; PULSE 74; RESP 20; TEMP 36.3; O2SAT 99
[2021-03-02 05:20] LABS: Hematocrit 29.2 % (37.0-47.0); Hemoglobin 9.2 g/dL (12.0-15.0)
[2021-03-02 06:00] VITALS: BP 117/49; PULSE 66; RESP 18; TEMP 36.5; O2SAT 97
[2021-03-02 08:00] VITALS: BP 108/41; PULSE 66; RESP 16; TEMP 36.9; O2SAT 90
[2021-03-02 08:23] LABS: Glucose Point of Care 127 mg/dl (65-105)
[2021-03-02] MEDS: PANTOPRAZOLE 40 MG TABLET PO (08:42)
[2021-03-02] MEDS: FEBUXOSTAT 40 MG TABLET PO (08:42)
[2021-03-02] MEDS: CELECOXIB 200 MG CAPSULE PO (08:42)
[2021-03-02] MEDS: ASPIRIN 325 MG ENTERIC TABLET 650 MG PO (08:42)
[2021-03-02] MEDS: ESCITALOPRAM OXALATE 10 MG TABLET 20 MG PO (08:42)
[2021-03-02] MEDS: busPIRone HCL 10 MG TABLET PO (08:43)
[2021-03-02] MEDS: ATORVASTATIN 40 MG TABLET PO (08:43)
[2021-03-02] MEDS: DOCUSATE SODIUM 100 MG CAPSULE PO (08:43)
--- NOTE | 2021-03-02 09:55 | PM.PNORT ---
Progress Note: A&P Assessment and Plan (1) Closed right hip fracture: Qualifiers: Encounter type: subsequent encounter Fracture healing: with routine healing Qualified Code(s): S72.001D - Fracture of unspecified part of neck of right femur, subsequent encounter for closed fracture with routine healing Code(s): S72.001A - Fracture of unspecified part of neck of right femur, initial encounter for closed fracture Status: Acute Assessment and Plan: Postoperative day 2 right hip intramedullary hip screw. Ambulating. P.T./OT. Pain control. DVT prophylaxis. Home with home health when medically stable. okay from orthopedic standpoint to be discharged home with home health. Weight bear as tolerated right leg. Enteric-coated aspirin daily for DVT prophylaxis. Pain control with [id number] medication and [place] for breakthrough. Follow-up with Dr. Varghese approximately 3 weeks. Subjective Subjective Date/Time Seen: 03/02/21 09:56 Post Op day: 2 Principal diagnosis: Right hip intertrochanteric fracture Interval history: patient awake and alert. Minimal complaints of pain. Well with physical therapy. Wants to go. Exam Const: General: cooperative, comfortable and no acute distress Nutritional Appearance: average body habitus Orientation/consciousness: patient oriented x3 Limitations: no limitations HENMT: Head: normal to inspection, normocephalic and atraumatic Ears: hearing grossly normal bilaterally General nose exam: Normal nares present Face and sinus: normal facial exam and face symmetric Mouth: Yes moist mucous membranes Eyes: General: appearance normal, both eyes and all related structures Conjunctivae: conjunctivae normal Sclera: sclerae normal Pupils: Equal, round and reactive pupils present Neck: Neck: supple and no JVD Chest: Chest palpation & inspection: normal inspection of the chest Resp: Effort & Inspection: normal respiratory effort and able to speak in complete sentences Cardio: Jugular venous distension: no JVD Rate: regular rate Rhythm: regular rhythm GI: Inspection: non-distended GI Palp: Yes Soft to palpation and No Tenderness to palpation present (GI) Neuro: General: gait normal Cognition (Neuro): normal cognition Speech: normal speech Gait exam (Neuro): Unable to assess gait Extrem: Right lower extremity: hip/thigh Details: tenderness Location: of the hip Location: laterally, anteriorly, anteromedially, anterolaterally and over the greater trochanter, swelling Location: at the hip and ecchymosis (Lateral hip ); ROM normal, knee Details: normal to inspection; no tenderness, no swelling and ROM abnormal (ROM deferred due to right hip fracture ), lower leg Details: normal to inspection, ankle (+ankle dorsiflexion/plantarflexion. ) and foot (2+ pedal pulses. Moves toes. Sensation diminished secondary to neuropathy) Details: normal capillary refill and motor-sensory exam Details: light-touch abnormal Location: in all toes Left lower extremity: hip/thigh Details: normal to inspection and normal ROM; no tenderness and no swelling, knee Details: normal to inspection and normal ROM; no tenderness and no swelling, lower leg Details: normal to inspection, palpable cord and no edema; no localized swelling, no ecchymosis, no crepitus, no deformity and no unusual warmth, ankle Details: normal to inspection, no edema and normal ROM; no tenderness, no swelling and no pitting edema and foot Details: normal capillary refill, toes with normal ROM and vascular exam Details: dorsalis pedis pulse present; no tenderness Other: Right hip dressing clean dry and intact. Changed this morning. Negative Homans sign. Psych: Mental Status: mental status grossly normal Affect: normal affect Objective Data Vital Signs Vital Signs: Vital Signs - 24 hr 03/01/21 11:25 03/01/21 13:45 03/01/21 15:25 Temperature 98.1 F 99.4 F Pulse Rate 71 75 Respiratory Rate 16 16 Blood Pressure 116/52
[2021-03-02 12:00] LABS: Glucose Point of Care 219 mg/dl (65-105)
[2021-03-02 12:01] LABS: Vitamin D 25 Hydroxy 27.6 ng/mL
[2021-03-02] MEDS: INSULIN ASPART (*BKC) 100 UNITS/ML SUB-Q (12:01)
--- NOTE | 2021-03-02 12:24 | PM.DS ---
DS: Admitting Diagnosis Discharge Date 03/02/2021 Admitting Diagnosis Right hip fracture DS: Discharge Diagnosis Discharge Diagnosis (1) Closed fracture of right hip: Qualifiers: Encounter type: initial encounter Qualified Code(s): S72.001A - Fracture of unspecified part of neck of right femur, initial encounter for closed fracture Code(s): S72.001A - Fracture of unspecified part of neck of right femur, initial encounter for closed fracture Status: Acute Assessment and Plan: Secondary to mechanical fall with which she landed on her right hip. Did not hit her head. No precipitating symptoms. She underwent insertion of gamma bteh of the right hip performed by Dr. Varghese on 02/28/2021 Managed by Orthopedic surgery including incision care and DVT prophylaxis Supportive care provided including analgesics as needed for pain PT/OT evals appreciated. She did well with therapy. Home health was arranged and she will be staying with her daughter will assist her as needed. She has 2 steps to enter the home. Continue aspirin 650 mg daily for DVT prophylaxis per Orthopedic surgery Follow-up with Dr. Varhgese in 3 weeks (2) Diabetes mellitus: Code(s): E11.9 - Type 2 diabetes mellitus without complications Status: Acute Assessment and Plan: A1c is 6.4 Managed with Accu-Cheks, sliding scale insulin, and hypoglycemic protocol during admission She is not on any hypoglycemic medications and is diet controlled. (3) Anxiety and depression: Code(s): F41.9 - Anxiety disorder, unspecified; F32.A - Depression, unspecified Status: Chronic Assessment and Plan: Mood was stable. She is going through a difficult time given the very recent loss of her but has strong family support. Continue escitalopram and buspirone (4) GERD (gastroesophageal reflux disease): Code(s): K21.9 - Gastro-esophageal reflux disease without esophagitis Status: Chronic Assessment and Plan: no acute issues Protonix 40 mg p.o. daily (5) Gout: Code(s): M10.9 - Gout, unspecified Status: Chronic Assessment and Plan: no acute issues. Continue febuxostat (6) Vitamin D insufficiency: Code(s): E55.9 - Vitamin D deficiency, unspecified Status: Acute Assessment and Plan: Vitamin-D levels evaluated due to fracture and found to be insufficient. Started on daily vitamin D supplementation 800 IU daily. Follow up with PCP for further monitoring She would benefit from DEXA scan as an outpatient. Reports she has never had one. DS: Summary Hospital Course Hospital Course: Date of admission: 02/27/2021 Date of discharge: 03/02/2021 Heydi Velasquez is a 76-year-old female with a history of hyperlipidemia, GERD, anxiety, and depression who presented to the emergency department on 02/27/2021 with complaints of right hip pain after a mechanical fall onto her right hip. On presentation to the emergency department, her blood pressure was slightly elevated with additional vital signs stable, CBC and BMP unremarkable, and hip/pelvis x-ray showed mildly comminuted intratrochanteric fracture of the proximal right femur. She was admitted to the hospitalist service for further evaluation and management and was seen in consultation by orthopedic surgery. Please see above for further details. She underwent surgical repair on 02/28 and tolerated the procedure well. Her pain was well controlled. She did well with PT and OT and will continue therapy with home health. She will be staying with her daughter who will assist her as needed. She was feeling much better and requested discharge home. Given her overall improvement, she was determined to no longer require inpatient care and was felt to be stable for discharge. We discussed worrisome signs and symptoms for which to return and she was educated on her medications. She was
== END 2021-03-02 13:20 | disposition home health service (06) | DRG 482 ==
LOC: ANHED 14:38 → ANH2MED 16:37
PROVIDERS: Nurse Practitioner; Orthopaedic Surgery; Physician Assistant; Admitting Provider Internal Medicine; Emergency Provider Emergency Medicine; PCP Family Medicine Adolescent Medicine; Visit Provider Internal Medicine
PROC: 0QS634Z Reposition Right Upper Femur with Internal Fixation Device, Percutaneous Approach (ICD-10-PCS; CPT 27245; principal; 2021-02-28 10:00)
DX: S72.144A Nondisplaced intertrochanteric fracture of right femur, initial encounter for closed fracture (principal); W18.39XA Other fall on same level, initial encounter; F41.8 Other specified anxiety disorders; K21.9 Gastro-esophageal reflux disease without esophagitis; M10.9 Gout, unspecified; E78.5 Hyperlipidemia, unspecified; E55.9 Vitamin D deficiency, unspecified; Z90.710 Acquired absence of both cervix and uterus; Z87.891 Personal history of nicotine dependence; Z90.49 Acquired absence of other specified parts of digestive tract; Z98.42 Cataract extraction status, left eye; Z98.41 Cataract extraction status, right eye; Z90.722 Acquired absence of ovaries, bilateral
CPT/HCPCS: 36415; 73502; 80048; 80053; 82306; 82948; 83036; 83605; 83735; 84443; 85014; 85018; 85025; 85610; 85730; 86140; 86850; 86900; 86901; 93005; 96374; 96375; 96376; 97110; 97116; 97163; 97165; 97530; 97535; 99285; A9270; C1713; G0378; J0131; J0690; J1170; J1815; J2270; J2405; J2704; J3010; J7030; J7120

== ENCOUNTER 2021-08-05 00:22 | Day surgery (SDC) | payer OTHER, SELFPAY ==
[2021-07-28 13:03] VITALS: BMI 26.5
[2021-08-05 07:52] VITALS: BP 157/72; PULSE 78; RESP 20; TEMP 36.2; O2SAT 100; BMI 26.9
[2021-08-05] MEDS: LACTATED RINGERS 1,000 ML 150 ML IV CONT (08:04)
[2021-08-05 08:10] LABS: Glucose Point of Care 118 mg/dl (65-105)
--- NOTE | 2021-08-05 08:45 | WPDGICN ---
Assessment and Plan Assessment and plan (1) GERD (gastroesophageal reflux disease): Code(s): K21.9 - Gastro-esophageal reflux disease without esophagitis Status: Chronic (2) Ham's esophagus: Code(s): K22.70 - Ham's esophagus without dysplasia Status: Acute Assessment and Plan: Patient gives a diagnosis Ham's esophagus. Plan for continued PPI and anti-reflux measures. An EGD will be performed now and every 3 years for surveillance. Further recommendations may be given after endoscopy. (3) Family hx of colon cancer: Code(s): Z80.0 - Family history of malignant neoplasm of digestive organs Status: Acute Assessment and Plan: Patient has 2 sisters with colon cancer. Patient herself has had colon polyps previously. Plan for continued surveillance at least every 5 years and further recommendations may be given after endoscopy. GI Consult Note Consult date/time: 08/05/21 08:45 HPI: Heydi Velasquez is a 76 year old female Presents for colonoscopy an EGD. Patient's family history is significant 2 sisters have had colon cancer. Patient herself has had colon polyps on previous examinations. All previous examinations were performed in [place] in these are not immediately available for review. Patient reports that her current weight appetite and bowel movements are normal. She denies abdominal pain. She has had no bleeding. She presents for neoplasia screening. Additionally patient reports a history of Barretts esophagus and chronic GE reflux disease. Currently maintained on Prilosec 20mg p.o. daily she no longer has heartburn. She has no difficulty swallowing. She has previously been told she had Ham's esophagus initially endoscoped on an annual basis she now is monitored on an every 3 year basis. Most recent endoscopy was performed 3 years ago at [facility]. These results are not immediately available for review. Patient presents today for surveillance EGD. Review of Systems Review of Systems: All systems reviewed & are unremarkable except as noted in HPI and below PMFSH Past Medical History Medical History (Updated 08/05/21 @ 08:48 by Chance Wolfe MD) Abnormal colonoscopy 07/22 3 polyps Anxiety and depression Closed fracture of right hip Closed right hip fracture Fibromyalgia GERD (gastroesophageal reflux disease) Gout History of high cholesterol Osteoporosis Vitamin D insufficiency Surgical History Surgical History (Updated 06/24/21 @ 07:43 by Eliceo Gonzalez MD) H/O bladder repair surgery Bladder stimulator which was subsequently removed. H/O oophorectomy 1990 H/O toe surgery History of appendectomy History of hip surgery 02/27 ORIF right hip History of hysterectomy 1977 History of surgery on extremity Right lower extremity and right arm Hx of cataract extraction 2006 Hx of cholecystectomy 2012 Family History Family History Father Congestive heart failure Sibling Diabetes mellitus Kidney failure Carcinoma of colon Seizure Mother Cancer Social History Social History (Updated 06/25/21 @ 15:58 by Lauren Valadez MA) Social History: The patient is . Her recently passed. Her daughter Lucy silva is a durable power senior trial attorney for healthcare. 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 Patient is an ex-smoker. She does not use any marijuana, drugs or alcohol. Code status full code Smoking packs per day: 0.2 Smoking cigarettes per day: 4.0 Years smoked: 10 Smoking pack-years: 2.00 Smoking status: Former smoker Tobacco type: cigarettes Second hand tobacco smoke exposure: No Alcohol intake: never Substance use: never Substance use type: does not use Living arrangements: alone Additional living arrangements comments: recently - ability to d/c to daughter's home i
--- NOTE | 2021-08-05 08:49 | WPDANESEPPF ---
Anes - Initial Pre Proc Eval Procedure: Operation Date: 08/05/21 09:00 Proposed Procedures p Esophagogastroduodenoscopy & Screening Colonoscopy - Chance Wolfe MD Date/Time: 08/05/21 08:49 Surgeon: Chance Wolfe MD Pre Op Diagnosis: family hx of colon ca, ni's esophagus Patient Data Age: 76 Gender: F Height: 1.6 m Weight: 69.1 kg Last Vital Signs Temp 97.2 F L 08/05/21 07:52 Pulse 78 08/05/21 07:52 Resp 20 08/05/21 07:52 BP 157/72 H 08/05/21 07:52 Pulse Ox 100 08/05/21 07:52 Allergies Allergy/AdvReac Type Severity Reaction Status Date / Time Iodinated Contrast Media Allergy Severe Swelling Verified 08/05/21 07:49 of Lip/Tongue/Throat allopurinol Allergy Other Verified 08/05/21 07:49 venom-wasp Allergy Swelling Verified 08/05/21 07:49 of Lip/Tongue/Throat Home Medications Medication Instructions Recorded Confirmed Type atorvastatin 40 mg PO DAILY 02/17/21 07/28/21 History escitalopram oxalate 20 mg PO DAILY 02/17/21 07/28/21 History febuxostat 40 mg PO DAILY 02/17/21 07/28/21 History omeprazole 20 mg PO DAILY 02/17/21 07/28/21 History cholecalciferol (vitamin D3) 20 mcg PO DAILY #60 cap 03/02/21 07/28/21 Rx buspirone 10 mg tablet 10 mg PO DAILY #180 tablet 05/16/21 07/28/21 Rx guaifenesin [Robitussin] 200 mg PO Q4H PRN 08/05/21 08/05/21 History Laboratory Tests 08/05/21 08:07 POC Capillary Glucose 118 mg/dl H mg/dl (65-105) Patient hx anesthesia problems: none Family hx anesthesia problems: none Results Review: All pre-operative results and documents have been reviewed as part of the pre-operative evaluation. [facility] Past Medical History Medical History (Updated 08/05/21 @ 08:48 by Chance Wolfe MD) Abnormal colonoscopy 07/22 3 polyps Anxiety and depression Closed fracture of right hip Closed right hip fracture Fibromyalgia GERD (gastroesophageal reflux disease) Gout History of high cholesterol Osteoporosis Vitamin D insufficiency Surgical History Surgical History (Updated 06/24/21 @ 07:43 by Eliceo Gonzalez MD) H/O bladder repair surgery Bladder stimulator which was subsequently removed. H/O oophorectomy 1990 H/O toe surgery History of appendectomy History of hip surgery 02/27 ORIF right hip History of hysterectomy 1977 History of surgery on extremity Right lower extremity and right arm Hx of cataract extraction 2006 Hx of cholecystectomy 2011 Family History Family History Father Congestive heart failure Sibling Diabetes mellitus Kidney failure Carcinoma of colon Seizure Mother Cancer Social History Social History (Updated 06/25/21 @ 15:58 by Lauren Valadez MA) Social History: The patient is . Her recently passed. Her daughter Lucy silva is a durable power health care attorney for healthcare. 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 Patient is an ex-smoker. She does not use any marijuana, drugs or alcohol. Code status full code Smoking packs per day: 0.2 Smoking cigarettes per day: 4.0 Years smoked: 10 Smoking pack-years: 2.00 Smoking status: Former smoker Tobacco type: cigarettes Second hand tobacco smoke exposure: No Alcohol intake: never Substance use: never Substance use type: does not use Living arrangements: alone Additional living arrangements comments: recently - ability to d/c to daughter's home in [place], [place] Gender identity (if verbalized by the patient): Female Sexual Orientation (if Verbalized by the Patient): Straight or Heterosexual Spiritual care concerns: No Agree to blood products: Yes Anes - Eval Final PreProcedure Day of Procedure 08/05/21 08:49 Patient weight: normal Heart: regular rate and rhythm Lungs: clear to auscultation Airway: Mallampati scale class II Neurological: alert and oriented Last oral i
--- NOTE | 2021-08-05 09:32 | SUR.OPER ---
EGD ended at 926. Colonoscopy started at 931.
[2021-08-05] MEDS: SIMETHICONE ORAL SUSPENSION 20 MG/0.3 ML 30 ML BOTTLE 0.6 ML IRRIGATION (09:40)
[2021-08-05 09:50] VITALS: BP 178/90; PULSE 71; RESP 14; O2SAT 100
[2021-08-05 10:00] VITALS: BP 156/90; PULSE 65; RESP 14; O2SAT 100
[2021-08-05 10:10] VITALS: BP 179/92; PULSE 65; RESP 14; O2SAT 100
== END 2021-08-05 10:22 | disposition home or self-care (01) ==
PROVIDERS: PCP Family Medicine Adolescent Medicine; Visit Provider Internal Medicine Gastroenterology
PROC: 0DJ08ZZ Inspection of Upper Intestinal Tract, Via Natural or Artificial Opening Endoscopic (ICD-10-PCS; CPT 43235; principal; 2021-08-05 09:00)
DX: Z12.11 Encounter for screening for malignant neoplasm of colon (principal); K22.70 Barrett's esophagus without dysplasia; K21.00 Gastro-esophageal reflux disease with esophagitis, without bleeding; E55.9 Vitamin D deficiency, unspecified; E78.00 Pure hypercholesterolemia, unspecified; M81.0 Age-related osteoporosis without current pathological fracture; M79.7 Fibromyalgia; K64.8 Other hemorrhoids; F32.A Depression, unspecified; F41.9 Anxiety disorder, unspecified; Z87.891 Personal history of nicotine dependence; Z80.0 Family history of malignant neoplasm of digestive organs
CPT/HCPCS: 43239; G0105; 82948; 88305; J2704; J7120

== ENCOUNTER 2021-10-04 20:18 | Emergency (ER) | payer OTHER, SELFPAY ==
--- NOTE | ~2021-10-04 | NM_ITS ---
NM pulmonary perfusion DATE: 10/04/2021 23:13 INDICATION: Syncope. Elevated d-dimer. TECHNIQUE: 8 standard views of the lungs following intravenous injection of 3.0 mCi 99m technetium MA A COMPARISON: 10/04/2021 portable AP chest FINDINGS: There is normal distribution of the radiotracer throughout the lungs, without evidence of s egmental or lobar perfusion abnormality. IMPRESSION: No evidence of pulmonary embolism Reviewed, dictated and finalized at [facility]. Reviewed, dictated and finalized at location A.
--- NOTE | ~2021-10-04 | XR_ITS ---
XR elbow RT min 3V DATE: 10/04/2021 21:36 INDICATION: Ground-level fall. Right elbow injury, pain TECHNIQUE: 3 views COMPARISON: None FINDINGS: No fracture or dislocation or joint effusion, periosteal reaction or bone destruction. IMPRESSION: No fracture or dislocation Reviewed, dictated and finalized at location A. IMPRESSION: No fracture or dislocation
--- NOTE | ~2021-10-04 | XR_ITS ---
XR chest 1V portable DATE: 10/04/2021 22:30 INDICATION: Syncope TECHNIQUE: Portable supine AP views on 10/04/2021 at 2222 and 2223 hours COMPARISON: None FINDINGS: Heart size appears within normal range. There is prominent aortic arch calcification. No hi lar or mediastinal enlargement. No pulmonary infiltrate or consolidation, pleural effusion or pulmonary vascular congestion or pneumo thorax. Osteopenia. IMPRESSION: No active cardiopulmonary disease Aortic atherosclerosis Osteopenia Reviewed, dictated and finalized at location A.
--- NOTE | ~2021-10-04 | CT_ITS ---
EXAMINATION: CT brain wo con DATE: 10/04/2021 22:19 INDICATION: Fall. Right head and facial bruising TECHNIQUE: Computed tomography (CT) of the head was performed without intravenous contrast. The mA wa s adjusted according to patient size. Iterative reconstruction technique was employed. Exam dose: 60 5.33 mGy-cm total exam DLP. COMPARISON: 08/28/2015 MRI brain 03/23/2013 CT brain FINDINGS: Moderate cerebral and prominent cerebellar volume loss. 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 There is nonspecific diminished attenuation of the cerebral white matter, likely due to chronic small vessel ischemic changes. Mild bilateral carotid siphon internal carotid artery calcifications. No intracranial mass lesion or hemorrhage, midline shift or mass effect effect. No recent cerebrovasc ular accident is evident. No subdural or epidural hematoma. Mild right temporal scalp hematoma. No fracture or bone destruction of the cranial vault. Paranasal s inuses and mastoid air cells are unremarkable. IMPRESSION: Mild right temporal scalp hematoma; no skull fracture or acute intracranial finding Reviewed, dictated and finalized at [facility]. Reviewed, dictated and finalized at location A. IMPRESSION: Mild right temporal scalp hematoma; no skull fracture or acute int racranial finding
--- NOTE | ~2021-10-04 | XR_ITS ---
XR wrist RT 2V DATE: 10/04/2021 21:36 INDICATION: Ground-level fall. Pain and swelling. TECHNIQUE: AP and lateral views COMPARISON: None FINDINGS: There is prominent soft tissue swelling of the distal forearm and wrist. There is a comminu luther intra-articular fracture of the distal radius with approximately 22 degrees apex anterior angulat ion and associated dorsal inclination of the distal radial articular surface. Fracture of the ulnar styloid process. Normal radiocarpal alignment. Osteophytic change at the first carpometacarpal and interphalangeal joints and multiple additional in terphalangeal joints. Osteopenia. IMPRESSION: Comminuted intra-articular fracture of distal radius with dorsal inclination of distal ra dial articular surface Ulnar styloid process fracture Prominent soft tissue swelling of the distal forearm and wrist Osteopenia Polyarticular osteoarthritis. Reviewed, dictated and finalized at location A. IMPRESSION: Comminuted intra-articular fracture of distal radius with dorsal in clination of distal radial articular surface Ulnar styloid process fracture Prominent soft tissue swelling of the distal forearm and wrist Osteopenia Polyarticular osteoarthritis.
--- NOTE | ~2021-10-04 | CT_ITS ---
EXAMINATION: CT facial bones wo con DATE: 10/04/2021 22:18 INDICATION: Patient fell and struck head and face. Bruising of right side of head and face. TECHNIQUE: Computed tomography (CT) of the facial bones and maxillofacial region was performed withou t intravenous contrast. Automated exposure control and iterative reconstruction technique were employ ed. Exam dose: 277.67 mGy-cm total exam DLP. COMPARISON: None. FINDINGS: There is right frontotemporal scalp hematoma. No underlying skull fracture or facial fractu re is evident. The frontozygomatic sutures, orbital rims and urbano and zygomatic arches are intact. Prominent osteoarthritic changes right temporal mandibular joint. IMPRESSION: Right frontotemporal scalp hematoma; no skull or facial fracture is identified Reviewed, dictated and finalized at [facility]. Reviewed, dictated and finalized at location A. IMPRESSION: Right frontotemporal scalp hematoma; no skull or facial fracture i s identified
[2021-10-04 20:36] VITALS: BP 186/77; PULSE 71; RESP 16; TEMP 37; O2SAT 100
--- NOTE | 2021-10-04 20:43 | ECG_ITS ---
Measurements Intervals [place] Rate: 68 P: -10 FL: 189 QRS: -20 QRSD: 94 T: 30 QT: 394 QTc: 419 Interpretive Statements SINUS RHYTHM DELAYED PRECORDIAL R/S TRANSITION LEFT VENTRICULAR HYPERTROPHY WITH ST-T CHANGE BORDERLINE T WAVE ABNORMALITY- ANT/INF LEADS BORDERLINE ECG Electronically Signed On 10-04-2021 21:07:29 CDT by Mic Siknner D.O.
--- NOTE | 2021-10-04 21:31 | ED.FALL ---
HPI - Fall General Chief Complaint: Fall Stated Complaint: possible fall/syncoapl event, injuries Time Seen by Provider: 10/04/21 20:58 Source: patient History of Present Illness HPI Narrative: Patient presents with what she thinks is a fall. Patient does not remember exactly what happened. When she was putting a dish away the next thing she knows she was sitting on the couch with a bloody nose and bruising on her face. She called her daughter and son-in-law who came to see her and brought her to the ER for further evaluation. Patient does not remember any chest pain shortness of breath lightheadedness or any prodrome prior to the events. Short she has pain on her right wrist right elbow and a mild headache. She denies use of any blood thinners. She reports she is been feeling well recently no recent fevers cough congestion nausea vomiting or diarrhea. Her pain in extremities is achy worse with moving the affected joint, no radiation. Related Data Home Medications Medication Instructions Recorded Confirmed atorvastatin 40 mg tablet 40 mg PO DAILY 02/17/21 07/28/21 escitalopram oxalate 20 mg tablet 20 mg PO DAILY 02/17/21 07/28/21 febuxostat 40 mg tablet 40 mg PO DAILY 02/17/21 07/28/21 omeprazole 20 mg capsule,delayed 20 mg PO DAILY 02/17/21 07/28/21 release Allergies Allergy/AdvReac Type Severity Reaction Status Date / Time Iodinated Contrast Media Allergy Severe Swelling Verified 08/21/21 14:34 of Lip/Tongue/Throat allopurinol Allergy Other Verified 08/21/21 14:34 venom-wasp Allergy Swelling Verified 08/21/21 14:34 of Lip/Tongue/Throat Review of Systems Review of Systems: CONSTITUTIONAL: Denies fever, chills, or sweats. EYES: Denies visual changes, redness, or discharge. ENT: Denies rhinorrhea, congestion, sore throat, or otalgia. CARDIOVASCULAR: Denies chest pain, palpitations, or edema. RESPIRATORY: Denies cough or dyspnea. GASTROINTESTINAL: Denies abdominal pain, nausea, vomiting, or diarrhea. GENITOURINARY: Denies dysuria or hematuria. SKIN: Denies rash or itching. MUSCULOSKELETAL: Denies back pain, or myalgia. NEUROLOGIC: Denies numbness, dizziness, or weakness. PSYCHIATRIC: Denies anxiety or depression. All systems reviewed & are unremarkable except as noted in HPI and below PMFSH Past Medical History Medical History Abnormal colonoscopy 07/22 3 polyps Anxiety and depression Closed fracture of right hip Closed right hip fracture Fibromyalgia GERD (gastroesophageal reflux disease) Gout History of high cholesterol Osteoporosis Trochanteric bursitis, right hip Vitamin D insufficiency Surgical History Surgical History H/O bladder repair surgery Bladder stimulator which was subsequently removed. H/O oophorectomy 1990 H/O toe surgery History of appendectomy History of hip surgery 02/27 ORIF right hip History of hysterectomy 1977 History of surgery on extremity Right lower extremity and right arm Hx of cataract extraction 2006 Hx of cholecystectomy 2011 Family History Family History Father Congestive heart failure Sibling Diabetes mellitus Kidney failure Carcinoma of colon Seizure Mother Cancer Social History Social History Social History: The patient is . Her recently passed. Her daughter Lucy silva is a durable power hydrologist for healthcare. 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 Patient is an ex-smoker. She does not use any marijuana, drugs or alcohol. Code status full code Smoking packs per day: 0.2 Smoking cigarettes per day: 4.0 Years smoked: 10 Smoking pack-years: 2.00 Tobacco type: cigarettes Second hand tobacco smoke exposure: No Alcohol intake: never Substance use: never
[2021-10-04 21:50] VITALS: BP 164/75; BP 174/93; PULSE 74; PULSE 80
[2021-10-04 21:52] VITALS: BP 190/74; PULSE 74
[2021-10-04 21:52] LABS: Basophils Percent Auto 0.3 % (0.2-1.2); Eosinophils Absolute Auto 0.2 K/mm3 (0-0.3); Eosinophils Percent Auto 1.9 % (0-4.4); Hematocrit 40.3 % (37.0-47.0); Hemoglobin 12.5 g/dL (12.0-15.0); Immature Granulocyte Absolute 0.04 K/mm3 (0.00-0.031); Immature Granulocyte Percent A 0.4 % (0-0.5); Lymphocytes Absolute Auto 1.27 K/mm3 (0.9-3.2); Lymphocytes Percent Auto 11.8 % (18.3-44.2); Mean Corpuscular Hemoglobin 27.7 pg (26-34); Mean Corpuscular Volume 89.4 fl (80-100); Mean Platelet Volume 9.6 fl (7.4-10.4); Monocytes Absolute Auto 0.7 K/mm3 (0.1-0.6); Monocytes Percent Auto 6.3 % (2.6-8.5); Neutrophils Absolute Auto 8.6 K/mm3 (1.3-6.7); Neutrophils Percent Auto 79.3 % (45.5-73.1); Platelet Count Result 260 k/mm3 (150-375); Red Blood Count 4.51 M/mm3 (4.2-5.4); White Blood Count 10.8 K/mm3 (4.5-10.0)
[2021-10-04 22:01] LABS: Alanine Aminotransferase 15 U/L (6-35); Albumin Level 4.3 g/dL (3.5-5.1); Alkaline Phosphatase 111 U/L (38-126); Anion Gap 9 mmol/L (8-16); Aspartate Amino Transferase 39 U/L (14-36); Bilirubin,Total 0.8 mg/dL (0.2-1.3); Blood Urea Nitrogen 17 mg/dL (7-17); Carbon Dioxide 29 mmol/L (22-30); Chloride 102 mmol/L (98-107); Estimated CRCL calculation 63 ml/min; Estimated Glomerular Filt Rate > 60; Glucose 143 mg/dL (65-110); Potassium 3.9 mmol/L (3.4-5.0); Sodium 140 mmol/L (137-145)
[2021-10-04 22:04] LABS: D Dimer 1.77 ug/mL (<0.48)
[2021-10-04 22:27] VITALS: PULSE 72; RESP 22; O2SAT 100
--- NOTE | 2021-10-04 23:16 | PC.NURSE ---
Report received from FIORELLA Lynn. This nurse assumed care of patient at this time.
[2021-10-04] MEDS: oxyCODONE/ACETAMINOPHEN (*CRX) 5-325 MG TABLET 1 TABLET PO (23:41)
[2021-10-05 00:11] VITALS: TEMP 37
[2021-10-05 00:56] VITALS: BP 157/64; PULSE 78; RESP 18; TEMP 37.1; O2SAT 96
== END 2021-10-05 01:07 | disposition home or self-care (01) ==
PROVIDERS: Emergency Provider Emergency Medicine; PCP Family Medicine Adolescent Medicine
DX: S52.571A Other intraarticular fracture of lower end of right radius, initial encounter for closed fracture (principal); S52.611A Displaced fracture of right ulna styloid process, initial encounter for closed fracture; S00.83XA Contusion of other part of head, initial encounter; E78.00 Pure hypercholesterolemia, unspecified; M79.7 Fibromyalgia; K21.9 Gastro-esophageal reflux disease without esophagitis; M10.9 Gout, unspecified; M81.0 Age-related osteoporosis without current pathological fracture; F41.9 Anxiety disorder, unspecified; F32.A Depression, unspecified; Z86.010 Personal history of colon polyps; Z98.49 Cataract extraction status, unspecified eye; Z87.891 Personal history of nicotine dependence; R94.31 Abnormal electrocardiogram [ECG] [EKG]; I51.7 Cardiomegaly; M85.831 Other specified disorders of bone density and structure, right forearm; M18.9 Osteoarthritis of first carpometacarpal joint, unspecified; M19.041 Primary osteoarthritis, right hand; M85.88 Other specified disorders of bone density and structure, other site; W19.XXXA Unspecified fall, initial encounter
CPT/HCPCS: 29125; 36415; 70450; 70486; 71045; 73080; 73100; 78580; 80053; 85025; 85380; 93005; 99284; A9270; A9540

== ENCOUNTER 2021-10-14 00:27 | Day surgery (SDC) | payer OTHER, SELFPAY ==
[2021-10-09 13:50] VITALS: BMI 26.6
[2021-10-14] VITALS (12 sets, daily range): BP systolic 142–196; BP diastolic 58–97; PULSE 58–92; RESP 12–17; TEMP 36.2–36.9; O2SAT 92–100
--- NOTE | ~2021-10-14 | XR_ITS ---
EXAMINATION: XR surgery orthopedic DATE: 10/14/2021 12:40 CDT INDICATION: ORIF RT WRIST . TECHNIQUE: 5 fluoroscopic images of the right wrist were obtained during open reduction internal fixa tion. I was not present in the operating room. Fluoroscopy exposure time was 704.1 seconds. Cummulati ve dose 10.90 mGy. COMPARISON: 02/28/21 FINDINGS: Screw and plate fixation of a distal right radial fracture into anatomic alignment. No fluoroscopic e vidence of procedure or hardware-related complication. IMPRESSION: Fluoroscopic documentation of right wrist ORIF. Reviewed, dictated and finalized at location K.
[2021-10-14] MEDS: ACETAMINOPHEN 500 MG TABLET 1000 MG PO (10:14)
[2021-10-14] MEDS: CELECOXIB 200 MG CAPSULE PO (10:14)
[2021-10-14] MEDS: LACTATED RINGERS 1,000 ML 30 ML IV CONT ×2 (10:30→14:45)
--- NOTE | 2021-10-14 11:09 | WPDANESEPPF ---
Anes - Initial Pre Proc Eval Procedure: Operation Date: 10/14/21 12:00 Proposed Procedures p Open Reduction Internal Fixation Right Wrist - Jose L Varghese MD Date/Time: 10/14/21 11:09 Surgeon: Jose L Varghese MD Pre Op Diagnosis: right wrist fx Patient Data Age: 76 Gender: F Height: 1.6 m Weight: 70.6 kg Last Vital Signs Temp 98.4 F 10/14/21 10:15 Pulse 72 10/14/21 10:15 Resp 16 10/14/21 10:15 BP 150/82 H 10/14/21 10:15 Pulse Ox 99 10/14/21 10:15 O2 Del Method Room Air 10/14/21 10:15 Allergies Allergy/AdvReac Type Severity Reaction Status Date / Time Iodinated Contrast Media Allergy Severe Swelling Verified 10/14/21 10:11 of Lip/Tongue/Throat allopurinol Allergy Other Verified 10/14/21 10:11 venom-wasp Allergy Swelling Verified 10/14/21 10:11 of Lip/Tongue/Throat Home Medications Medication Instructions Recorded Confirmed Type atorvastatin 40 mg tablet 40 mg PO QAM 02/17/21 10/14/21 History escitalopram oxalate 20 mg tablet 20 mg PO QAM 02/17/21 10/14/21 History febuxostat 40 mg tablet 40 mg PO QAM 02/17/21 10/14/21 History omeprazole 20 mg capsule,delayed 20 mg PO QAM 02/17/21 10/14/21 History release ondansetron 4 mg disintegrating 4 mg PO Q6H PRN nausea and 10/05/21 10/09/21 Rx tablet vomiting #20 tabs oxycodone-acetaminophen 5 mg-325 1 tablet PO Q4H PRN pain #10 tabs 10/05/21 10/14/21 Rx mg tablet buspirone 10 mg tablet 10 mg PO QAM 10/09/21 10/14/21 History cholecalciferol (vitamin D3) 10 20 mcg PO QAM 10/09/21 10/14/21 History mcg (400 unit) capsule Patient hx anesthesia problems: none Family hx anesthesia problems: none Results Review: All pre-operative results and documents have been reviewed as part of the pre-operative evaluation. [facility] Past Medical History Medical History (Updated 10/09/21 @ 11:52 by REYNA Guzman) Abnormal colonoscopy 07/22 3 polyps Anxiety and depression Ham esophagus Ham's esophagus Closed fracture of right hip Closed right hip fracture Diarrhea, unspecified chronic Family hx of colon cancer Fibromyalgia GERD (gastroesophageal reflux disease) Gout History of high cholesterol Major depressive disorder, recurrent, moderate Mixed hyperlipidemia Osteoporosis Sebaceous cyst Trochanteric bursitis, right hip Type 2 diabetes mellitus with mild nonproliferative diabetic retinopathy without macular edema, right eye Vitamin D insufficiency Wrist fracture Wrist fracture, right Surgical History Surgical History H/O bladder repair surgery Bladder stimulator which was subsequently removed. H/O oophorectomy 1990 H/O toe surgery History of appendectomy History of hip surgery 02/27 ORIF right hip History of hysterectomy 1977 History of surgery on extremity Right lower extremity and right arm Hx of cataract extraction 2006 Hx of cholecystectomy 2012 Family History Family History Father Congestive heart failure Sibling Diabetes mellitus Kidney failure Carcinoma of colon Seizure Mother Cancer Social History Social History Social History: The patient is . Her recently passed. Her daughter Lucy silva is a durable power classification counselor for healthcare. 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 Patient is an ex-smoker. She does not use any marijuana, drugs or alcohol. Code status full code Smoking packs per day: 0.2 Smoking cigarettes per day: 4.0 Years smoked: 10 Smoking pack-years: 2.00 Smoking status: Former smoker Tobacco type: cigarettes Second hand tobacco smoke exposure: No Additional smoking assessment comments: PT UNABLE TO RECALL DATE WHEN QUITTING SMOKING - STATES YEARS AND YEARS AGO Alcohol intake: never Substance use: never Substance use type: does not u
--- NOTE | 2021-10-14 11:48 | WPDHPUPDATE1 ---
History and Physical Update Update Date/Time: 10/14/21 11:48 History and Physical has been reviewed, including an updated exam of the patient. There are NO changes in the patient's condition. Risks, benefits, and alternatives have been discussed and questions answered. Patient agrees to proceed with procedure.
[2021-10-14] MEDS: ceFAZolin 2 GM/D5W 50 ML 2 GM/50 ML BAG IVPB (12:24)
--- NOTE | 2021-10-14 14:52 | P.OP_ITS ---
Procedure Note - Detailed Date of Procedure 10/14/21 Pre-op Diagnosis right wrist fx Post-op Diagnosis Same Procedure Performed ORIF RIGHT DISTAL RADIUS FRACTURE Surgeon Jose L Varghese MD Anesthesia General Description of Procedure THE RIGHT UPPER EXTREMITY WAS PREPPED AND DRAPED IN THE STERILE FASHION. A RAMÓN DARSarah HENRYS APPROACH WAS USED TO THE VOLAR WRIST. DISSECTION THROUGH THE SKIN AND SUBCUTANEOUS TISSUE WAS PREFORMED. THE FCR TENDON WAS IDENTIFIED. THE RADIAL ARTERY WAS IDENTIFIED AND RETRACTED. THE THE FLEXOR POLLICIS AND THE COMMON FLEXOR TENDONS WERE IDENTIFIED AND RETRACTED. THE PRONATOR QUADRATUS WAS IDENTIFIED AND INCISED EXPOSING THE FRACTURE. IT WAS HIGHLY COMMINUTED. A TRIAL REDUCTION WAS PREFORMED AND FIXED WITH A K WIRE. NEXT A BIOMET DISTAL RADIUS LOCKING PLATE WAS PLACED BRIDGING THE FRACTURE FRAGMENTS. SCREWS WERE PLACED DISTALLY AND PROXIMALLY. THE DISTAL SCREWS WERE IMAGED AND FOUND TO BE EXTRA ARTICULAR. C ARM IMAGES WERE PREFORMED AND HARDWARE AND FRACTURE FRAGMENTS WERE IN GOOD POSITION. THE TOURNIQUET WAS DEFLATED AND THE BLEEDERS WERE CAUTERIZED. THE FASCIA AND SUB CUTANEOUS LAYERS WERE APPROXIMATED WITH 3-0 VICRYL. THE SKIN WAS APPROXIMATED WITH 3-0 STRATAFIX AND DERMABOND. STERILE DRESSING AND SPLINT WAS APPLIED. PATIENT WAS EXTUBATED. Estimated Blood Loss 10 Complications No immediate complications Condition Stable Disposition PACU
[2021-10-14] MEDS: fentaNYL CITRATE INJ (*CRX) 100 MCG/2 ML VIAL 25 MCG IV PUSH ×6 (15:03→15:16)
[2021-10-14] MEDS: hydrALAZINE HCL 20 MG/ML VIAL 10 MG IV PUSH (15:51)
[2021-10-14] MEDS: oxyCODONE HCL (*CRX) 5 MG TAB IR PO (16:38)
== END 2021-10-14 17:08 | disposition home or self-care (01) ==
PROVIDERS: PCP Family Medicine Adolescent Medicine; Visit Provider Orthopaedic Surgery
PROC: (CPT 25575; principal; 2021-10-14 12:00)
DX: S52.571A Other intraarticular fracture of lower end of right radius, initial encounter for closed fracture (principal); S52.611A Displaced fracture of right ulna styloid process, initial encounter for closed fracture; W19.XXXA Unspecified fall, initial encounter; K21.9 Gastro-esophageal reflux disease without esophagitis; E55.9 Vitamin D deficiency, unspecified; E78.00 Pure hypercholesterolemia, unspecified; M81.0 Age-related osteoporosis without current pathological fracture; E11.3291 Type 2 diabetes mellitus with mild nonproliferative diabetic retinopathy without macular edema, right eye; F33.1 Major depressive disorder, recurrent, moderate; F41.9 Anxiety disorder, unspecified; M10.9 Gout, unspecified; Z87.891 Personal history of nicotine dependence
CPT/HCPCS: 25608; A9270; C1713; J0360; J0690; J1100; J2405; J2704; J3010; J7120

== ENCOUNTER → 2021-10-23 11:07 | Outpatient (CLI) | payer OTHER, SELFPAY ==
--- NOTE | ~2021-10-23 | DEXA_ITS ---
Bone Density Report Name: RADHA WILLOUGHBY Age: 76 Sex: Female Ethnicity: White Date of : 1945 Indication: postmenopausal; screening for osteoporosis; prior fracture; hysterectomy; Referring Provider: LACHO MURILLO Study: Bone densitometry was performed. Exam Date: October 23, 2021 Accession number: [id number] Bone Density: Region BMD T-score Z-score Classification AP Spine (L1-L4) 0.988 -0.5 2.0 Normal Femoral Neck (Left) 0.656 -1.7 0.5 Osteopenia Total Hip (Left) 0.743 -1.6 0.3 Osteopenia World Health Organization criteria for BMD impression classify patients as: Normal (T-score at or above -1.0), Osteopenia (T-score between -1.0 and -2.5), or Osteoporosis (T-score at or below -2.5). Clinical Information Provided by Patient: Have had a previous hip or vertebral fracture Has had a low trauma fracture Has used the following medications: Vitamin D Has the following medical conditions: Hysterectomy Patient maximum height was 63.5 Menopause Age: 29 No regular weight bearing exercise Does not regularly consume dairy products Drinks caffeinated beverages Onset of menses at age 10 Number of children 4 Impression: The patient has low bone mass, based on the Left Femoral Neck T-score. The patient has risk factors, including: previous fracture. Discussion: INCREASED RISK OF FRACTURE DUE TO HISTORY OF FRACTURE. The patient's previous fracture puts the patient at high risk of a future fracture. In untreated patients, the risk of osteoporotic fracture increases approximately two-fold for each 1.0 SD decrease in T-score. Low bone density is not the only risk factor for fracture; also consider factors such as patient's age, frailty or poor health, risk of falling, risk of injury, previous osteoporotic fracture, family history of osteoporosis, cigarette smoking, low body weight, etc. Not everyone with a low trauma fracture has osteoporosis; osteomalacia and other metabolic bone disorders should also be considered. Patients who have osteoporosis should be evaluated for specific diseases and conditions (secondary causes) that may cause or contribute to bone loss and fracture risk. National Osteoporosis Foundation (NOF) recommends pharmacologic intervention for patients with a prior hip or vertebral fracture regardless of BMD T-score. The patient should follow a healthful lifestyle (good nutrition with adequate calcium and vitamin D, and appropriate weight-bearing exercise). Follow-Up: Consider a repeat BMD and Vertebral Fracture Assessment (VFA) exam in 2 years or sooner if medically necessary, to reassess this patient's status. Reported by: YOBANY on 10/23/2021 11:36:00 AM. Reviewed, dictated and finalized at location AJoni JOHNSON
== END ==
PROVIDERS: PCP Family Medicine Adolescent Medicine; Visit Provider Family Medicine Adolescent Medicine
DX: Z78.0 Asymptomatic menopausal state (principal); M85.852 Other specified disorders of bone density and structure, left thigh
CPT/HCPCS: 77080

== ENCOUNTER → 2022-04-15 13:09 | Outpatient (CLI) | payer OTHER, SELFPAY ==
--- NOTE | ~2022-04-15 | MR_ITS ---
EXAMINATION: MR brain IAC wo con DATE: 04/15/2022 13:59 INDICATION: Right posterior headache. Unspecified visual disturbance. TECHNIQUE: Magnetic resonance imaging (MRI) of the brain and brainstem was performed without intraven ous contrast. COMPARISON: Brain MRI 08/28/2015 FINDINGS: Again seen is an empty sella. There are scattered areas of nonspecific increased T2-weighte d signal intensity in the cerebral white matter and sheela, which is within normal limits for the patie nt's age. There is no intracranial hemorrhage, acute infarction, or abnormal intracranial mass lesion . The ventricles are normal in size. There are likely changes of ocular lens replacement surgeries. T he paranasal sinuses are clear. The mastoid air cells are normal. IMPRESSION: 1. No acute intracranial pathology. Reviewed, dictated and finalized at location E. 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
== END ==
PROVIDERS: PCP Family Medicine Adolescent Medicine; Visit Provider Family Medicine Adolescent Medicine
DX: H53.9 Unspecified visual disturbance (principal); R29.6 Repeated falls; R51.9 Headache, unspecified
CPT/HCPCS: 70551

== ENCOUNTER → 2023-01-05 10:00 | Outpatient (CLI) | payer OTHER, SELFPAY ==
--- NOTE | ~2023-01-05 | MM_ITS ---
EXAMINATION: MM screening gregg BI w amanda HISTORY: Screening mammogram TECHNIQUE: Craniocaudal and mediolateral oblique 3-D tomosynthesis images were obtained and synthetic 2-D images were generated. CAD analysis was submitted and interpreted. COMPARISON: No prior mammogram is available for comparison at this institution. BREAST PARENCHYMAL COMPOSITION: The breasts are heterogeneously dense, which may obscure small masses . FINDINGS: There are scattered bilateral breast calcifications and possible bilateral breast masses. N o suspicious architectural distortion is identified. IMPRESSION: 1. Bilateral breast calcifications and possible breast masses which may represent the patient's basel ine however no comparison is currently available. 2. Comparison with prior mammograms is necessary. BI-RADS Category 0: Incomplete: Needs comparison with prior mammograms. Reviewed, dictated and finalized at location A. IMPRESSION: 1. Bilateral breast calcifications and possible breast masses which may represe nt the patient's baseline however no comparison is currently available. 2. Comparison with prior mammograms is necessary. BI-RADS Category 0: Incomplete: Needs comparison with prior mammograms.
== END ==
PROVIDERS: PCP Nurse Practitioner Family; Visit Provider Nurse Practitioner Family
DX: Z12.31 Encounter for screening mammogram for malignant neoplasm of breast (principal); R92.8 Other abnormal and inconclusive findings on diagnostic imaging of breast
CPT/HCPCS: 77063; 77067

== ENCOUNTER 2025-04-25 10:05 | Outpatient (CLI) | payer MEDICARE, OTHER, SELFPAY ==
--- NOTE | ~2025-04-25 | XR_ITS ---
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 Findings: No acute fracture or malalignment. No significant degenerative changes. Soft tissues unremarkable. Impression: No acute fracture or malalignment. Reviewed, dictated and finalized at location P. E SHOW MANAGER Impression: No acute fracture or malalignment.
--- NOTE | ~2025-04-25 | XR_ITS ---
Examination: XR knee RT 3V Clinical History: M25.561 - Pain in right knee Comparison: None Technique: 3 views right knee Findings/impression: 1. No fracture, dislocation, or effusion. 2. Moderate medial compartment joint space narrowing, with mild marginal osteophytes. 3. Mild patellofemoral joint space marginal osteophytes. Reviewed, dictated and finalized at location R. 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
== END 2025-04-25 10:06 | disposition home or self-care (01) ==
LOC: MICIMG 10:08
PROVIDERS: PCP Nurse Practitioner Family; Visit Provider Nurse Practitioner Family
DX: M17.11 Unilateral primary osteoarthritis, right knee (principal); M22.2X1 Patellofemoral disorders, right knee; S93.421A Sprain of deltoid ligament of right ankle, initial encounter; M81.8 Other osteoporosis without current pathological fracture
CPT/HCPCS: 73562; 73600